=== PATIENT | female | born 1955 ===

== ENCOUNTER 2024-06-20 22:44 | Emergency (ER) | payer MEDICARE, MEDICAID, SELFPAY ==
[2024-06-20 22:54] VITALS: BP 186/80; PULSE 81; RESP 16; TEMP 36.6; O2SAT 97; BMI 24.4
--- NOTE | 2024-06-21 00:03 | ED.GENADULT ---
HPI - General Adult General Date Seen: 06/21/24 Chief complaint: Cough Stated complaint: cough, body aches Time Seen by Provider: 06/20/24 22:46 Source: patient and family Mode of arrival: ambulatory Limitations: no limitations History of Present Illness HPI narrative: Patient is a 69-year-old Moh[place]-speaking female presents with her family, she is visiting from [place], she has been coughing for approximately 7 days, they brought her in tonight she denies any chest pain any real shortness of breath with this just whenever she speaks she seems to cough, she has a history of stage 5 renal disease, followed in [place] for this but has not been on dialysis, they have not been given her any medications, she has had no fevers, chills she is eating and drinking normally there is no nausea vomiting, or other issue. She is able to walk normal is sleeping normal in flat. She has had no swelling of her legs. They report that her COVID immunizations are up-to-date, Past medical history, stage 5 kidney disease, anxiety, back pain, osteoporosis, Radiation: non-radiation Severity: mild Exacerbating factors: none Treatments prior to arrival: none Related Data Home Medications ?Medication ?Instructions ?Recorded ?Confirmed amlodipine 5 mg tablet 5 mg PO DAILY 06/20/24 06/20/24 hydrocodone 5 mg-acetaminophen 325 1 tab PO DAILY 06/20/24 06/20/24 mg tablet Allergies Allergy/AdvReac Type Severity Reaction Status Date / Time No Known Drug Allergies Allergy Verified 06/20/24 22:58 Review of Systems Status of ROS: Reports: 10 or more systems reviewed and unremarkable except as noted in History and below [facility] Social History Non-prescribed substance use: denies use Exam Narrative: Exam Narrative: On examination here she is in no apparent distress she is seen in room 2, her elevated blood pressure they tell me is normal for her. Her pupils are equal round reactive to light, she has normal breathing, chest is good air entry bilaterally there is some crackles in the bases bilaterally that clear with deep inspiration, heart sounds no clicks murmurs or gallops her abdomen is soft and obese, no tenderness to palpation, lower extremities reveal no pitting edema swelling she moves all extremities independently and well. Const: Vital Signs, click to edit/add: Vital Signs - 24 hr 06/20/24 22:54 Temperature 97.9 F Pulse Rate [Pulse Oximeter] 81 Respiratory Rate 16 Blood Pressure [Ri ght Upper Arm] 186/80 H Pulse Oximetry 97 Oxygen Delivery Me thod Room Air Documenting provider has reviewed patient's vital signs: yes Course Vital Signs Vital signs: Initial Vital Signs Temperature 97.9 F 06/20/24 22:54 Temperature Source Temporal Artery Scan 06/20/24 22:54 Pulse Rate 81 06/20/24 22:54 Respiratory Rate 16 06/20/24 22:54 Blood Pressure 186/80 H 06/20/24 22:54 Blood Pressure Mean 115 H 06/20/24 22:54 Blood Pressure Position Sitting 06/20/24 22:54 Pulse Oximetry 97 06/20/24 22:54 Oxygen Delivery Method Room Air 06/20/24 22:54 Vital Signs Temperature 97.9 F 06/20/24 22:54 Pulse Rate 81 06/20/24 22:54 Respiratory Rate 16 06/20/24 22:54 Blood Pressure 186/80 H 06/20/24 22:54 Pulse Oximetry 97 06/20/24 22:54 Oxygen Delivery Method Room Air 06/20/24 22:54 Temperature 97.9 F 06/20/24 22:54 Pulse Rate 81 06/20/24 22:54 Respiratory Rate 16 06/20/24 22:54 Blood Pressure 186/80 H 06/20/24 22:54 Pulse Oximetry 97 06/20/24 22:54 Oxygen Delivery Method Room Air 06/20/24 22:54 Medical Decision Making MDM Narrative Medical decision making narrative: Differential diagnosis include a viral upper respiratory illness, histoplasmosis, tuberculosis, pneumonia, COPD exacerbation, emphysema, strep throat illness, bronchitis, asthma, reactive airway disease, chronic cough, medication side effects, allergic rhinitis with postnasal drip, foreign body aspiration, aspiration pneumonia, bronchiolitis, and gastroesophageal reflux disease as well as multiple other considerations. I discussed with them, that I think she has a little bit of bronchitis, even if she tested positive for COVID, she has other the course for treatment at this point, given her normal vital signs and nontoxic nature, they did talk to me about antibiotics, I think 1 that would be reasonable to use would be Zithromax, and this situation. Is informed consent risks benefits and side effects discussed, she is worsening she needs to come back. Medical Records Medical records reviewed: Yes I reviewed the patient's medical records Discharge Plan Discharge Clinical Impression: Cough, Bronchitis Patient Disposition: Home w/ Parent or Adult Condition: Stable Instructions: Acute Bronchitis (ED) Additional Instructions: Home rest use of medications as directed, I would recommend that she also use your pain medication 1 tablet twice a day, this will make you feel better but she also will need to use her stool softener. Return if increasing chest pain shortness of breath or fevers. Activity Level: Light activity Prescriptions: No Action amlodipine 5 mg tablet 5 mg PO DAILY hydrocodone-acetaminophen 5-325 mg tablet 1 tab PO DAILY Follow Up/Referrals: Provider,Not a Local [Primary Care Provider] - Stand Alone Forms: GetApp Info Instructions
== END 2024-06-21 | disposition home or self-care (01) ==
PROVIDERS: Emergency Provider Family Medicine
DX: J40 Bronchitis, not specified as acute or chronic (principal)
CPT/HCPCS: 99283; 99284